=== PATIENT | female | born 1985 | race Caucasian/White ===

== ENCOUNTER 2019-03-15 02:58 | Emergency (ER) | payer MEDICAID ==
[~2019-03-15] VITALS: Ht 170.2 cm; Wt 74.3 kg
[2019-03-15 03:07] VITALS: BP 117/78
--- NOTE | 2019-03-15 04:18 | NUR ---
informed dr rowe that patient's ride is here and she is wanting to leave. patient left without being seen
--- NOTE | 2019-03-15 04:19 | NUR ---
rn immunology marci aware of lwob
== END 2019-03-15 04:15 | disposition home or self-care (01) ==
LOC: ER 02:59
DX: L23.7 Allergic contact dermatitis due to plants, except food (principal); Z53.21 Procedure and treatment not carried out due to patient leaving prior to being seen by health care provider

== ENCOUNTER 2025-05-21 21:29 | Emergency (ER) | payer MEDICAID, SELFPAY ==
[~2025-05-21 21:29] MED LIST: IBUP600T52 PO; LACT1CAP26 PO; LORA-268 PO; QUET50TA PO
== END 2025-05-21 23:22 | disposition left against medical advice (07) ==
LOC: ER 21:29
DX: Z00.00 Encounter for general adult medical examination without abnormal findings (principal); Z53.21 Procedure and treatment not carried out due to patient leaving prior to being seen by health care provider

== ENCOUNTER 2025-07-11 03:14 | Emergency (ER) | payer MEDICAID ==
[~2025-07-11] VITALS: Ht 170.2 cm; Wt 62.2 kg
[2025-07-11 03:16] VITALS: BP 123/85; PULSE 73; RESP 16; TEMP 98; O2SAT 99
--- NOTE | 2025-07-11 03:32 | Physician Documentation ---
History of Present Illness ~ Chief Complaint: Medical Clearance Stated Complaint: REQUESTING DETOX Time Seen by MD: 03:28 Primary Medical Doctor: none HPI Patient presents to the emergency room for medical clearance to go to rehab facility. Polysubstance abuse. No complaints at this time Tetanus within 5 years?: Yes (2018) Medication Reconciliation Allergies: Coded Allergies: No Known Allergies (Unverified , 03/15/19) Scheduled Ibuprofen (Ibuprofen), 1 TAB PO Q8H Lactobacillus Rhamnosus (Culturelle), 1 CAP PO DAILY Quetiapine Fumarate (Seroquel), 1 TAB PO HS, (Reported) Scheduled PRN Lorazepam (Ativan), 1 TAB PO Q12H PRN PRN for anxiety, (Reported) Past Medical History Past Medical History: No Pertinent History Past Surgical History: noncontributory Alcohol Use: Sober Drug Use: methamphetamine Lives with: Other Lives In: Home Occupation: employed Review of Systems ROS All review of systems negative except as per HPI Physical Exam Vital Signs: Temperature: 98.0, Source: Oral, Heart Rate: 73, Respiratory Rate: 16, BP: 123/85, Pulse Oximetry: 99, Weight: 62.200 Oxygen Flow Rate: 0 Physical Exam General: Patient is awake, alert, oriented x4 in no acute distress Head: Normocephalic and atraumatic. Eyes: Conjunctival normal. EOMI. PERRL. ENT: Mucous membranes moist. Neck: Supple, trachea is midline. Chest: Clear to auscultation bilaterally without rales, rhonchi, or wheezes. There is no accessory muscle use or retractions. Cardiac: RRR without murmurs, gallops, or rubs. Progress Results/Orders Results/Orders Vital Signs 07/11/25 03:16 Temp 98.0 Pulse 73 Resp 16 B/P (MAP) 123/85 Pulse Ox 99 O2 Flow Rate 0 Medical Decision Making Findings Patient presents to the emergency room with no physical complaint requesting medical clearance and we will give it to her. Differential Dx:Considerations: Include: Intoxication-Alcohol, Intoxication- Other drug, Personality disorder, Substance abuse disorder, Acute delirium, Closed head injury, Cervical spine injury, Skull fracture, Fracture(s), Abrasion, Contusion, Foreign body, Hematoma, Laceration, Alcohol withdrawl syndrom, Encephalopathy, Hepatitis, Medically stable, Other Departure Disposition: 01 HOME / SELF CARE / HOMELESS Impression: Primary Impression: General medical exam Condition: Stable Discharge Instructions: Medical Screening Exam Additional Instructions: you are medically cleared for rehab facility Referrals: NO PRIMARY CARE PROVIDER (PCP) Signature Scribe Signature: No scribe Attestation: The note accurately reflects work and decisions made by me.Antonio Collins MD 07/11/25 03:32 ANTONIO COLLINS MD Jul 11, 2025 03:32
== END 2025-07-11 03:41 | disposition home or self-care (01) ==
LOC: ER 03:14
DX: Z00.00 Encounter for general adult medical examination without abnormal findings (principal); F19.10 Other psychoactive substance abuse, uncomplicated; F15.90 Other stimulant use, unspecified, uncomplicated; Z79.899 Other long term (current) drug therapy
CPT/HCPCS: 99282